=== PATIENT | female | born 1990 | race Caucasian/White ===

== ENCOUNTER 2019-02-03 10:15 | Emergency (ER) | payer OTHER ==
[~2019-02-03] VITALS: Ht 167.6 cm; Wt 68.2 kg
[2019-02-03 10:19] VITALS: TEMP 98.7
[2019-02-03 11:09] LABS: COLLECTION METHOD CLEAN CATCH
[2019-02-03 11:26] LABS: PH 7 (5-8); SQUAMOUS EPITHELIAL 0-2 /hpf; URINE APPEARANCE Clear; URINE BACTERIA Rare /hpf; URINE BILIRUBIN Negative (NEGATIVE); URINE BLOOD Negative (NEGATIVE); URINE COLOR Colorless; URINE GLUCOSE Negative (NEGATIVE); URINE KETONE Negative (NEGATIVE); URINE LEUKOCYTE ESTERASE Negative (NEGATIVE); URINE NITRATE Negative (NEGATIVE); URINE PROTEIN(semi-quant) Negative (NEGATIVE); URINE RBC 0-2 /hpf; URINE UROBILINOGEN Negative (NEGATIVE)
[2019-02-03] MEDS ORDERED: FLEXERIL 1010 MG/TAB PO (11:42)
[2019-02-03 11:49] VITALS: BP 122/78; PULSE 81
== END 2019-02-03 11:51 | disposition home or self-care (01) ==
LOC: COL.ER 10:15
PROVIDERS: Nurse Practitioner
DX: R10.9 Unspecified abdominal pain (principal); V43.52XA Car driver injured in collision with other type car in traffic accident, initial encounter